=== PATIENT | male | born 2000 | race Caucasian/White ===

== ENCOUNTER 2019-06-14 15:26 | Emergency (ER) | payer BC ==
[~2019-06-14] VITALS: Ht 172.7 cm; Wt 72.6 kg
[2019-06-14 15:45] VITALS: BP 131/69
--- NOTE | 2019-06-14 15:45 | NUR ---
ED Nurse Note: Patient walked into ED c/o asthma, states that he used his inhaler at around 10 am this morning however found no relief. at time of triage, patients o2 sat currently at 95%. will continue to monitor
[2019-06-14] MEDS ORDERED: PREDNISONE50 MG ORAL (15:51)
--- NOTE | 2019-06-14 15:51 | Emergency Room Report ---
History of Present Illness General Chief Complaint: Dyspnea/Respdistress Source: Patient Present Illness HPI 18-year-old male history of asthma presents with shortness of breath started 10 AM, albuterol helps, no aggravating factors severity is moderate, constant, no nausea no vomiting, he does endorse some chest tightness, no fevers chills cough congestion, no sputum production patient presents for evaluation patient has never been intubated never been placed in ICU for his asthma. Allergies: Coded Allergies: No Known Allergies (Unverified , 06/14/19) Patient History Past Medical History: see triage record Reviewed Nursing Documentation: PMH: Agreed; PSxH: Agreed Nursing Documentation-PMH Past Medical History: No History, Except For Hx Asthma: Yes Review of Systems All Other Systems: negative except mentioned in HPI Physical Exam Vital Signs Date Time Temp Pulse Resp B/P (MAP) Pulse Ox O2 Delivery O2 Flow Rate FiO2 06/14/19 15:35 98.2 76 18 131/69 (89) 96 Room Air Sp02 EP Interpretation: reviewed, normal General Appearance: well appearing, no apparent distress, alert Head: normocephalic, atraumatic Eyes: bilateral eye PERRL, bilateral eye EOMI ENT: uvula midline, moist mucus membranes Neck: supple, thyroid normal, supple/symm/no masses Respiratory: no respiratory distress, no retraction, no accessory muscle use, decreased breath sounds, wheezing - Mild Cardiovascular #1: normal peripheral pulses, regular rate, rhythm, no edema, no gallop, no murmur Gastrointestinal: non tender, soft, no guarding, no rebound Musculoskeletal: normal inspection Neurologic: alert, oriented x3 Psychiatric: mood/affect normal Skin: no rash, warm/dry Medical Decision Making Diagnostic Impression: Primary Impression: Asthma attack Qualified Codes: J45.21 - Mild intermittent asthma with (acute) exacerbation ER Course 18-year-old male presents with shortness of breath, lasting at 10 AM, mild wheezing Patient given duo nebs with improvement in symptoms, 1 dose of steroids here Reevaluation patient doing better Disposition home with return precautions wheezing is significantly improved Last Vital Signs Date Time Temp Pulse Resp B/P (MAP) Pulse Ox O2 Delivery O2 Flow Rate FiO2 06/14/19 15:35 98.2 76 18 131/69 (89) 96 Room Air Disposition: HOME, SELF-CARE Condition: Stable Scripts Prednisone* (PREDNISONE*) 50 Mg Tablet 50 MG ORAL DAILY, #4 TAB 0 Refills Prov: Audi Garcia MD 06/14/19 Referrals: [facility] Yosi Medrano. [facility] Patient Instructions: Asthma Attack Prevention, Asthma, Adult, [id number] Additional Instructions: The patient was provided with discharge instructions, notified to follow-up with a primary care doctor and or specialist in the next 24-48 hours, and to return to the ED if they have worsening of their symptoms. Please note that this report is being documented using [employer] technology. This can lead to erroneous entry secondary to incorrect interpretation by the dictating instrument. Audi Garcia MD Jun 14, 2019 15:51
[2019-06-14] MEDS: Ipratropium 0.02% Inh Soln 2.5ml UD HHN SCH (16:01)
[2019-06-14] MEDS: Albuterol ud Inhalation HHN SCH (16:01)
[2019-06-14 16:56] VITALS: BP 127/71
--- NOTE | 2019-06-14 16:57 | NUR ---
ER DISCHARGE NOTE: Patient is cleared to be discharged per ERMD with mom, pt is aox4, on room air, with stable vital signs. pt was given dc and prescription instructions, pt was able to verbalize understanding, pt id band removed without complications. pt is able to ambulate with steady gait. pt took all belongings.
== END 2019-06-14 16:57 | disposition home or self-care (01) ==
LOC: EMR 16:34
DX: J45.21 Mild intermittent asthma with (acute) exacerbation (principal)
CPT/HCPCS: 94640; 94664; 99284; J7512